=== PATIENT | male | born 1945 | race Caucasian/White ===

== ENCOUNTER 2016-10-24 09:42 | Outpatient (CLI) | payer OTHER | END 2016-10-24 09:43 | LOC: POD 09:42 | PROVIDERS: ATTEND Podiatrist Public Medicine | DX: M72.2 Plantar fascial fibromatosis (principal); M79.671 Pain in right foot | CPT/HCPCS: G0463 ==

== ENCOUNTER 2016-11-07 08:29 | Outpatient (CLI) | payer OTHER | END 2016-11-07 08:30 | LOC: POD 08:29 | PROVIDERS: ATTEND Podiatrist Public Medicine | DX: M72.2 Plantar fascial fibromatosis (principal); M79.671 Pain in right foot; M10.00 Idiopathic gout, unspecified site | CPT/HCPCS: G0463 ==

== ENCOUNTER 2017-04-03 11:06 | Outpatient (CLI) | payer OTHER ==
--- NOTE | 2017-04-03 12:19 | Diagnostic Imaging Report ---
AKIRA MONTAÑO [facility] [address] [facility].[address] [address] Report Submission Date: Apr 03, 2017 11:51:41 AM ROUNDHOUSE FIRER/FIREMAN Patient Study Name: LORENA ELDRIDGE Date: Apr 03, 2017 11:27:11 AM ROUNDHOUSE FIRER/FIREMAN Modality Type: CR Gender: M Description: LOWER EXTREMITY : 43 Institution: [facility] Physician: AKIRA MONTAÑO Examination: Plain film ankle History: Ankle discomfort. Findings: 3 views of the ankle demonstrates normal cortical margins. No fracture or dislocation. Talar dome is intact. Inferior calcaneal spur. No soft tissue swelling. No joint effusion. Impression: Mild degenerative changes. No acute appearing osseous process. Electronically signed on Apr 03, 2017 11:51:41 AM ROUNDHOUSE FIRER/FIREMAN by: Kavon ANGUIANO
--- NOTE | 2017-04-03 12:20 | Diagnostic Imaging Report ---
AKIRA MONTAÑO [facility] [address] [facility] [address] [address] Report Submission Date: Apr 03, 2017 11:50:19 AM SENSORY SCIENTIST Patient Study Name: LORENA ELDRIDGE Date: Apr 03, 2017 11:32:00 AM SENSORY SCIENTIST Modality Type: CR Gender: M Description: PELVIS : 43 Institution: [facility] Physician: AKIRA MONTAÑO Examination: Plain film hip History: Hip discomfort Comparison exams: None provided Findings: 2 views of the hip demonstrates normal mineralization. Ossific density projecting off the posterior acetabular margin. Remainder of the acetabulum is within normal limits. Femoral head and neck are without cortical irregularity. No dislocation. No soft tissue abnormality. Impression: Possible avulsion off the posterior acetabulum: chronicity indeterminate. Correlate with any pertinent traumatic history. No evidence for femoral head fracture or dislocation. Electronically signed on Apr 03, 2017 11:50:19 AM SENSORY SCIENTIST by: Kavon ANGUIANO
== END 2017-04-03 11:07 ==
LOC: RAD 11:06
PROVIDERS: ATTEND Family Medicine
DX: M25.571 Pain in right ankle and joints of right foot (principal); M25.551 Pain in right hip
CPT/HCPCS: 73502; 73610

== ENCOUNTER 2018-02-24 16:10 | Outpatient (CLI) | payer OTHER ==
--- NOTE | 2018-02-24 17:31 | Diagnostic Imaging Report ---
AKIRA MONTAÑO [facility] [address] [facility] [address] [address] Report Submission Date: Feb 24, 2018 4:52:14 PM AIRPORT LOCATION MANAGER Patient Study Name: LORENA ELDRIDGE Date: Feb 24, 2018 4:17:29 PM AIRPORT LOCATION MANAGER Modality Type: DX Gender: M Description: SPINE : 43 Institution: [facility] Physician: AKIRA MONTAÑO Examination: Plain film lumbar spine History: CHRONIC BACK PAIN RADIATING TO BILATERAL HIPS X 2 YEARS. NKI. (Hx) Findings: 2 views of the lumbar spine demonstrate normal height. No anterior compression. Anterior osteophytes and L4/L5 and L5/S1 disc space narrowing. Atherosclerotic disease involving the abdominal aorta. Impression: Lumbar degenerative changes. No vertebral body compression deformity. Electronically signed on Feb 24, 2018 4:52:14 PM AIRPORT LOCATION MANAGER by: Kavon ANGUIANO
--- NOTE | 2018-02-24 17:31 | Diagnostic Imaging Report ---
AKIRA MONTAÑO [facility] [address] [facility] [address] [address] Report Submission Date: Feb 24, 2018 4:54:00 PM ZINC PLATE CUTTER Patient Study Name: LORENA ELDRIDGE Date: Feb 24, 2018 4:15:40 PM ZINC PLATE CUTTER Modality Type: DX Gender: M Description: SPINE : 43 Institution: [facility] Physician: AKIRA MONTAÑO Examination: Plain film thoracic spine History: CHRONIC BACK PAIN RADIATING TO BILATERAL HIPS X 2 YEARS. NKI. (Hx) Findings: 3 views of the thoracic spine demonstrate normal height. No anterior compression. Scattered osteophytes. No soft tissue abnormalities. Impression: Degenerative spurring. No vertebral body compression deformity. Electronically signed on Feb 24, 2018 4:54:00 PM ZINC PLATE CUTTER by: Kavon ANGUIANO
== END 2018-02-24 16:12 ==
LOC: RAD 16:10
PROVIDERS: ATTEND Family Medicine
DX: M47.816 Spondylosis without myelopathy or radiculopathy, lumbar region (principal); M47.814 Spondylosis without myelopathy or radiculopathy, thoracic region; M54.5 Low back pain; M54.6 Pain in thoracic spine
CPT/HCPCS: 72072; 72100

== ENCOUNTER 2018-03-15 09:14 | Emergency (ER) | payer OTHER ==
--- NOTE | 2018-03-15 09:46 | ED Physician Documentation ---
General Adult - HISTORIAN Historian: patient, spouse - [facility] Chief Complaint: General Adult Additional Information: rt great toe foot painful and swollen-hx gout-no current meds for same xc 2 ibu per day helps some Onset: other (1 weekk progressive slightly. pt also c/o light headiness and dizzness leopoldo on first arising onset 3-4 days ago. pt rexcently took 'PAIN PILLSd" from DR Moser made him constipated-but ok now eats sleepsfeels ok xc foot) Timing: still present Severity: moderate Last known Well Code/Unknown Code: Known - ROS CONST: no problems EYES/ENT: none CVS/RESP: none GI/: none MS/SKIN/LYMPH: none NEURO/PSYCH: dizziness. denies: headache, fainting, difficulty walking, difficulty with speech - PAST HX Past History: other (BPH GOUT ) Surgeries/Procedures: other (cataracts hernia rt shoulder) Allergies/Adverse Reactions: Allergies Allergy/AdvReac Type Severity Reaction Status Date / Time No Known Drug Allergies Allergy Verified 03/15/18 10:36 Home Medications: Ambulatory Orders Medication Instructions Recorded Finasteride [Proscar] 5 mg PO BID u2 10/29/13 Tamsulosin HCl 0.4 mg PO DAILY av 10/29/13 - SOCIAL HX Smoking History: non-smoker Alcohol Use: none Drug Use: none - FAMILY HX Family History: No - REVIEWED ASSESSMENTS Nursing Assessment Reviewed: Yes Vitals Reviewed: Yes ED Results Lab/Radiology - Radiology Radiology Impressions: uric acid 6.7 - Orders Orders: ED Orders Category Date Time Status CBC/PLATELET/DIFF Routine Lab 03/15/18 Ordered URIC ACID Stat Lab 03/15/18 Ordered URINALYSIS Routine Lab 03/15/18 Ordered General Adult Physical Exam - PHYSICAL EXAM GENERAL APPEARANCE: mild distress EENT: eye inspection normal NECK: normal inspection, supple RESPIRATORY: no resp distress, chest non-tender, breath sounds normal CVS: reg rate & rhythm, heart sounds normal ABDOMEN: soft, non-tender SKIN: warm/dry, normal color. No: cyanosis, diaphoresis, jaundice EXTREMITIES: edema (as describeed above) NEURO: oriented X3, motor nml, sensation nml, mood/affect nml Discharge Clincal Impression: acute gout Referrals: Ramakrishna Minaya MD [Primary Care Provider] - 2 Days Comments: ibu 600 tid--if notbetter try indomethacin Condition: Good Disposition: 01 HOME, SELF-CARE Decision to Admit: NO Decision Time: 11:44
[2018-03-15 12:40] VITALS: BP 149/72
[2018-03-15 22:45] LABS: BASOPHILS % 0.3 (0.0-1.5); EOSINOPHILS % 8.1 % (0.0-6.8); MEAN CORPUSCULAR HEMOGLOBIN 29.9 pg (28.0-34.0); MONOCYTES % 4.1 % (0.0-11.0); NEUTROPHILS # 5.2 # k/uL (1.4-7.7)
[2018-03-15 22:46] LABS: eGFR (Non-African) 58
== END 2018-03-15 11:45 | disposition home or self-care (01) ==
LOC: ED 09:14
DX: M10.9 Gout, unspecified (principal)
CPT/HCPCS: 36415; 80053; 84550; 85025; 99281; 99283